=== PATIENT | male | born 1960 | race Caucasian/White ===

== ENCOUNTER 2021-03-05 16:07 | Inpatient (IN) | payer BC, OTHER ==
[~2021-03-05] VITALS: Ht 175.3 cm; Wt 96.8 kg
[2021-03-05] MEDS ORDERED: HEPARIN 1,000 UNITS/ml 1ML VIAL IV ONE (16:15)
[2021-03-05] MEDS ORDERED: ANGIOMAX 250 MG VIAL IV ONE (16:25)
[2021-03-05] MEDS ORDERED: ATROPINE SULF 1 MG/10ml SYR ONE (16:25)
[2021-03-05] MEDS ORDERED: fentaNYL CITRATE 100 MCG/2 ML VL ONE (16:25)
[2021-03-05] MEDS ORDERED: MIDAZOLAM HCL 1MG/1ML-2 ML VIAL ONE (16:25)
[2021-03-05] MEDS ORDERED: SODIUM CHL 0.9% 50 ML ONE (16:26)
[2021-03-05] MEDS ORDERED: EPINEPHrine HCL 1 MG/10 ML SYRG ONE (16:26)
[2021-03-05] MEDS ORDERED: IODIXANOL 320MG/ML 100ML BTL IV ONE (16:26)
[2021-03-05] MEDS ORDERED: LIDOCAINE 2%HCL (LOCAL ANESTH.) INJ 20ML MDV ONE (16:26)
[2021-03-05] MEDS ORDERED: diphenhdrAMINE HCL 50 MG/1 ML VL ONE (16:28)
[2021-03-05 16:35] LABS: Basophils # (auto) 0.1 10 ^3/uL (0-0.2); Basophils % (auto) 0.9 % (0.0-2.0); Eosinophils # (auto) 0.1 10 ^3/uL (0-0.8); Eosinophils % (auto) 0.8 % (0.0-7.0); Hematocrit 44.3 % (41.0-53.0); Hemoglobin 15.5 g/dL (13.5-17.5); Lymphocytes # (auto) 2.2 10 ^3/uL (0.4-5.4); Lymphocytes % (auto) 24.8 % (10.0-50.0); Mean Corpuscular Volume 94.4 fL (80.0-100.0); Monocytes # (auto) 0.8 10 ^3/uL (0-1.3); Monocytes % (auto) 8.8 % (0.0-12.0); Neutrophils # (auto) 5.7 10 ^3/uL (1.6-8.6); Neutrophils % (auto) 64.7 % (37.0-80.0); Nucleated Red Blood Cells % 0.1 %; Platelet Count (auto) 188 10^3/uL (140-450); Red Cell Distribution Width 12.6 % (11.8-14.3); White Blood Cell 8.9 10^3/uL (4.4-10.8)
[2021-03-05] MEDS ORDERED: LIDOCAINE HCL 100 MG/5ML (2%) SYRG INJ IV ONE (16:39)
[2021-03-05 16:45] LABS: Albumin 3.4 g/dL (3.4-5.0); BUN/Creatinine Ratio 11.3; Calcium 8.5 mg/dL (8.5-10.1); Magnesium 2.4 mg/dL (1.6-2.6); Potassium 5.4 mmol/L (3.5-5.1)
[2021-03-05] MEDS ORDERED: TICAGRELOR 90 MG TAB ONE (16:48)
[2021-03-05 16:50] LABS: Bilirubin, Total 0.6 mg/dL (0.2-1.0); Total Protein 6.1 g/dL (6.4-8.2)
[2021-03-05] MEDS ORDERED: METOPROLOL TARTRATE 1MG/1ML-5ML VIAL IV ONE (16:56)
[2021-03-05] MEDS ORDERED: ONDANSETRON HCL 4 MG/2 ML VIAL IV ONE (17:00)
[2021-03-05] MEDS ORDERED: MORPHINE SULF INJ 2 MG/ML SYRINGE 1ML IV PRN ×4 (17:15→20:45)
[2021-03-05] MEDS ORDERED: NITROGLYCERIN 0.4 MG SL TAB SL PRN ×3 (17:15→20:45)
[2021-03-05] MEDS ORDERED: ATORVASTATIN 20 MG TAB PO SCH (17:30)
[2021-03-05 17:35] LABS: INR 1.08 (0.9-1.15); Partial Thromboplastin Time 21.8 sec (23.0-31.2)
[2021-03-05] MEDS ORDERED: CALCIUM CHL 100MG/ML 1,000 MG in D5W 5% 100 ML IV ONE (19:15)
[2021-03-05] MEDS ORDERED: SODIUM ZIRCONIUM CYCL 10 GM PAK PO ONE (19:15)
[2021-03-05] MEDS ORDERED: ALBUTEROL SULF 2.5 MG/0.5ML(0.5%) NEB SOLN NEB ONE (19:15)
[2021-03-05] MEDS ORDERED: SODIUM BICARBONATE 8.4% INJ 50ML SYRINGE IV ONE (19:15)
[2021-03-05] MEDS ORDERED: FUROSEMIDE 20 MG/2 ML VIAL IV ONE (19:15)
[2021-03-05 19:49] VITALS: BP 139/87
[2021-03-05 20:00] VITALS: BP 133/83
[2021-03-05] MEDS ORDERED: METOPROLOL SUCCINATE XL 50 MG TAB PO ONE ×2 (20:26→20:30)
[2021-03-05] MEDS ORDERED: METOPROLOL TARTRATE 1MG/1ML-5ML VIAL IV PRN (20:30)
[2021-03-05] MEDS ORDERED: SODIUM CHLORIDE 0.9% 1,000 ML IV SCH ×2 (20:30→20:45)
[2021-03-05 20:36] VITALS: BP 133/83
[2021-03-05] MEDS ORDERED: ALUM & MAG HYDROX-SIMETH LIQ(MAALOX) 30 ML PO PRN (20:45)
[2021-03-05] MEDS ORDERED: ONDANSETRON HCL 4 MG/2 ML VIAL IV PRN ×2 (20:45)
[2021-03-05] MEDS ORDERED: LORazepam 0.5 MG TAB PO PRN ×2 (20:45)
[2021-03-05] MEDS ORDERED: DOCUSATE SOD 100 MG CAP PO PRN (20:45)
[2021-03-05] MEDS ORDERED: HYDROcodone-ACET 5/325MG TAB PO PRN (20:45)
[2021-03-05 21:00] VITALS: BP 139/87
[2021-03-05] MEDS ORDERED: ATORVASTATIN 20 MG TAB PO ONE (21:30)
[2021-03-05 22:00] VITALS: BP 126/74
[2021-03-05 23:00] VITALS: BP 127/77
[2021-03-06] VITALS (17 sets, daily range): BP systolic 107–133; BP diastolic 61–85
[2021-03-06] MEDS ORDERED: ATOR10TA52 PO (01:21)
[2021-03-06] MEDS ORDERED: LEVOTAB51 PO (01:23)
[2021-03-06 03:57] LABS: Basophils # (auto) 0 10 ^3/uL (0-0.2); Basophils % (auto) 0.3 % (0.0-2.0); Eosinophils # (auto) 0 10 ^3/uL (0-0.8); Eosinophils % (auto) 0.1 % (0.0-7.0); Hematocrit 45.7 % (41.0-53.0); Hemoglobin 15.9 g/dL (13.5-17.5); Lymphocytes # (auto) 1.2 10 ^3/uL (0.4-5.4); Lymphocytes % (auto) 10.4 % (10.0-50.0); Mean Corpuscular Hemoglobin 32.8 pg (28.0-32.0); Mean Corpuscular Hgb Conc. 34.9 g/dL (32.0-36.0); Mean Corpuscular Volume 93.9 fL (80.0-100.0); Monocytes # (auto) 1.2 10 ^3/uL (0-1.3); Monocytes % (auto) 10.2 % (0.0-12.0); Neutrophils # (auto) 9.1 10 ^3/uL (1.6-8.6); Platelet Count (auto) 186 10^3/uL (140-450); Red Blood Cells 4.86 10^6/uL (4.5-5.90); Red Cell Distribution Width 12.7 % (11.8-14.3); White Blood Cell 11.5 10^3/uL (4.4-10.8)
[2021-03-06 04:08] LABS: INR 1.04 (0.9-1.15); Partial Thromboplastin Time 23.6 sec (23.0-31.2)
[2021-03-06 04:10] LABS: Albumin 3.5 g/dL (3.4-5.0); Potassium 3.6 mmol/L (3.5-5.1); Uric Acid 9.6 mg/dL (3.5-7.2)
[2021-03-06 04:24] LABS: Thyroid Stimulating Hormone 0.82 uIU/mL (0.358-3.74)
[2021-03-06 04:29] LABS: BUN/Creatinine Ratio 15.1; Bilirubin, Total 1.1 mg/dL (0.2-1.0); Phosphorus 3.5 mg/dL (2.5-4.90); Total Protein 6.4 g/dL (6.4-8.2)
[2021-03-06] MEDS: TICAGRELOR 90 MG TAB PO SCH ×3 (05:30→22:06)
[2021-03-06] MEDS: ASPirin 81 mg TAB PO SCH (09:41)
[2021-03-06] MEDS: DOCUSATE SOD 100 MG CAP PO SCH (09:44)
[2021-03-06] MEDS ORDERED: ENOXAPARIN SOD 40 MG/0.4 ML SYRINGE SC SCH (10:00)
[2021-03-06] MEDS ORDERED: METOPROLOL SUCCINATE XL 50 MG TAB PO SCH (10:00)
[2021-03-06] MEDS: ATORVASTATIN 20 MG TAB PO SCH (22:06)
[2021-03-07] VITALS: BP 130/68
[2021-03-07 03:54] LABS: Basophils # (auto) 0.1 10 ^3/uL (0-0.2); Basophils % (auto) 0.6 % (0.0-2.0); Eosinophils # (auto) 0.2 10 ^3/uL (0-0.8); Eosinophils % (auto) 1.7 % (0.0-7.0); Hematocrit 44.9 % (41.0-53.0); Hemoglobin 16.1 g/dL (13.5-17.5); Lymphocytes % (auto) 19.8 % (10.0-50.0); Mean Corpuscular Hemoglobin 33.3 pg (28.0-32.0); Mean Corpuscular Volume 92.7 fL (80.0-100.0); Monocytes # (auto) 1.1 10 ^3/uL (0-1.3); Monocytes % (auto) 10.9 % (0.0-12.0); Neutrophils # (auto) 6.8 10 ^3/uL (1.6-8.6); Nucleated Red Blood Cells % 0.1 %; Platelet Count (auto) 157 10^3/uL (140-450); Red Blood Cells 4.84 10^6/uL (4.5-5.90); Red Cell Distribution Width 12.6 % (11.8-14.3); White Blood Cell 10.2 10^3/uL (4.4-10.8)
[2021-03-07 04:00] VITALS: BP 131/71
[2021-03-07 04:10] LABS: INR 1.07 (0.9-1.15); Partial Thromboplastin Time 24.8 sec (23.0-31.2)
[2021-03-07 04:27] LABS: Albumin 3.4 g/dL (3.4-5.0); Calcium 8.3 mg/dL (8.5-10.1); Magnesium 2.1 mg/dL (1.6-2.6); Potassium 3.7 mmol/L (3.5-5.1)
[2021-03-07 04:47] LABS: BUN/Creatinine Ratio 19.1; Bilirubin, Total 1.1 mg/dL (0.2-1.0); Phosphorus 2.3 mg/dL (2.5-4.90); Total Protein 6.4 g/dL (6.4-8.2)
[2021-03-07 08:00] VITALS: BP 124/58
[2021-03-07] MEDS: DOCUSATE SOD 100 MG CAP PO SCH (10:00)
[2021-03-07] MEDS: ASPirin 81 mg TAB PO SCH (10:44)
[2021-03-07] MEDS: METOPROLOL SUCCINATE XL 50 MG TAB PO SCH (10:47)
[2021-03-07] MEDS ORDERED: TICAGRELOR 90 MG TAB PO ONE (11:00)
[2021-03-07] MEDS: TICAGRELOR 90 MG TAB PO SCH (21:35)
[2021-03-07] MEDS: SACUBITRIL-VALSARTAN 24mg/26mg TAB PO SCH (21:35)
[2021-03-07] MEDS: ATORVASTATIN 20 MG TAB PO SCH (21:36)
[2021-03-07 22:00] VITALS: BP 115/77
[2021-03-08 05:00] VITALS: BP 108/70
[2021-03-08 05:51] LABS: Basophils # (auto) 0 10 ^3/uL (0-0.2); Basophils % (auto) 0.5 % (0.0-2.0); Eosinophils # (auto) 0.2 10 ^3/uL (0-0.8); Eosinophils % (auto) 2.7 % (0.0-7.0); Hematocrit 47.4 % (41.0-53.0); Lymphocytes # (auto) 1.6 10 ^3/uL (0.4-5.4); Lymphocytes % (auto) 17.9 % (10.0-50.0); Mean Corpuscular Hemoglobin 33.5 pg (28.0-32.0); Mean Corpuscular Hgb Conc. 35.8 g/dL (32.0-36.0); Mean Corpuscular Volume 93.6 fL (80.0-100.0); Monocytes # (auto) 0.9 10 ^3/uL (0-1.3); Monocytes % (auto) 10.4 % (0.0-12.0); Neutrophils # (auto) 6.1 10 ^3/uL (1.6-8.6); Neutrophils % (auto) 68.5 % (37.0-80.0); Nucleated Red Blood Cells % 0.3 %; Platelet Count (auto) 152 10^3/uL (140-450); Red Blood Cells 5.07 10^6/uL (4.5-5.90); Red Cell Distribution Width 12.5 % (11.8-14.3)
[2021-03-08 06:10] LABS: Albumin 3.3 g/dL (3.4-5.0); Calcium 8.3 mg/dL (8.5-10.1); Magnesium 2.4 mg/dL (1.6-2.6); Potassium 3.8 mmol/L (3.5-5.1)
[2021-03-08 06:11] LABS: INR 1.04 (0.9-1.15); Partial Thromboplastin Time 25.8 sec (23.0-31.2)
[2021-03-08 06:16] LABS: BUN/Creatinine Ratio 21.9; Phosphorus 2.7 mg/dL (2.5-4.90); Total Protein 6.6 g/dL (6.4-8.2)
[2021-03-08 09:00] VITALS: BP 116/77
[2021-03-08] MEDS: DOCUSATE SOD 100 MG CAP PO SCH (09:59)
[2021-03-08] MEDS: ASPirin 81 mg TAB PO SCH (09:59)
[2021-03-08] MEDS: TICAGRELOR 90 MG TAB PO SCH (09:59)
[2021-03-08] MEDS: METOPROLOL SUCCINATE XL 50 MG TAB PO SCH (10:00)
[2021-03-08] MEDS: SACUBITRIL-VALSARTAN 24mg/26mg TAB PO SCH (10:02)
[2021-03-08] MEDS ORDERED: CHOL20007 PO (11:22)
[2021-03-08] MEDS ORDERED: METO25TA36 PO (11:22)
[2021-03-08] MEDS ORDERED: TICA90TA PO (11:22)
[2021-03-08] MEDS ORDERED: ATO40T PO (11:22)
[2021-03-08] MEDS ORDERED: FAMO20TA10 PO (11:22)
[2021-03-08] MEDS ORDERED: SACU1TAB PO (11:22)
[2021-03-08] MEDS ORDERED: ASPI-378 PO (11:22)
[2021-03-08 12:47] VITALS: BP 134/82
== END 2021-03-08 15:40 | disposition home or self-care (01) | DRG 246 ==
LOC: EDBD 16:07 → ER 16:07 → ICU WEST 19:18 → TELE-WESTW 03-07 17:04
PROVIDERS: ADMIT Hospitalist; ATTEND Internal Medicine
PROC: 027034Z Dilation of Coronary Artery, One Artery with Drug-eluting Intraluminal Device, Percutaneous Approach (ICD-10-PCS; principal; 2021-03-05)
PROC: 4A023N7 Measurement of Cardiac Sampling and Pressure, Left Heart, Percutaneous Approach (ICD-10-PCS; 2021-03-05)
PROC: B2111ZZ Fluoroscopy of Multiple Coronary Arteries using Low Osmolar Contrast (ICD-10-PCS; 2021-03-05)
DX: I21.09 ST elevation (STEMI) myocardial infarction involving other coronary artery of anterior wall (principal); I50.43 Acute on chronic combined systolic (congestive) and diastolic (congestive) heart failure; I47.2 Ventricular tachycardia; J98.11 Atelectasis; I11.0 Hypertensive heart disease with heart failure; I25.10 Atherosclerotic heart disease of native coronary artery without angina pectoris; E78.5 Hyperlipidemia, unspecified; E55.9 Vitamin D deficiency, unspecified; E66.9 Obesity, unspecified; E78.00 Pure hypercholesterolemia, unspecified; F17.200 Nicotine dependence, unspecified, uncomplicated; Z79.02 Long term (current) use of antithrombotics/antiplatelets; Z79.82 Long term (current) use of aspirin; Z79.899 Other long term (current) drug therapy; Z68.31 Body mass index [BMI] 31.0-31.9, adult; Z82.49 Family history of ischemic heart disease and other diseases of the circulatory system
CPT/HCPCS: 36415; 71045; 80053; 82306; 82728; 83036; 83615; 83735; 83880; 84100; 84132; 84443; 84484; 84550; 85025; 85610; 85730; 86850; 86900; 86901; 87040; 87081; 93005; 93306; 94640; 96374; 99152; 99291; C1874; G0378; J2250; J7060; Q9967